=== PATIENT | female | born 1990 | race African-American/Black ===

== ENCOUNTER 2017-11-20 09:27 | Emergency (ER) | payer SELFPAY ==
[~2017-11-20] VITALS: Ht 167.6 cm; Wt 54.0 kg
[2017-11-20] MEDS ORDERED: LORAZEPAM 2MG/ML CPJ IM STA (09:40)
[2017-11-20] MEDS ORDERED: OLANZAPINE 10 MG/VIAL IM STA (09:40)
[2017-11-20 10:11] LABS: BASOPHILS % 0.1 % (0.0-2.0); EOSINOPHILS % 0.4 % (0.0-5.0); HEMATOCRIT. 38.9 % (36.0-48.0); LYMPHOCYTES % 9.2 % (20.0-50.0); MEAN CORPUSCULAR HEMOGLOBIN 31.2 pg (28.0-32.0); MEAN CORPUSCULAR VOLUME 93.7 fL (81.0-99.0); MEAN PLATELET VOLUME 9.6 fl (7.4-10.4); NEUTROPHILS % 87.3 % (40.0-76.0); PLATELET 281 x1000/uL (130-400); RED BLOOD CELL COUNT 4.15 mill/uL (4.2-5.4); RED CELL DISTRIBUTION WIDTH 13.6 % (11.6-14.6)
[2017-11-20 10:19] LABS: CHLORIDE 109 mEq/L (98-107)
[2017-11-20 10:22] LABS: ETHANOL BLOOD < 10 mg/dL
[2017-11-20 10:27] LABS: AMMONIA < 25 uMol/L (<32)
[2017-11-20 10:28] LABS: TROPONIN I < 0.02 ng/mL (0.00-0.04)
[2017-11-20] MEDS ORDERED: ONDANSETRON HCL 4MG/2ML VIAL IM ONE (15:45)
[2017-11-20 17:19] VITALS: BP 131/68
== END 2017-11-20 18:07 | disposition home or self-care (01) ==
LOC: ER 09:34
DX: F41.0 Panic disorder [episodic paroxysmal anxiety] (principal); Z88.5 Allergy status to narcotic agent
CPT/HCPCS: 36415; 80053; 80307; 80329; 82140; 84443; 84484; 85025; 93005; 96372; 99285; G0482; J2060; J2405; J3490

== ENCOUNTER 2019-06-01 07:51 | Emergency (ER) | payer MEDICAID ==
[~2019-06-01] VITALS: Ht 165.1 cm; Wt 56.0 kg
[2019-06-01] MEDS ORDERED: SODIUM CHLORIDE 0.9% 1,000 ML IV ONE ×2 (08:47→11:24)
[2019-06-01] MEDS ORDERED: ONDANSETRON HCL 4MG/2ML INJ IV STA (08:47)
[2019-06-01] MEDS ORDERED: LORAZEPAM 2MG/ML CPJ IV ONE (09:00)
[2019-06-01 09:05] LABS: CLARITY URINE CLEAR (CLEAR); COLOR URINE YELLOW (YELLOW); KETONES URINE 1+ (NEGATIVE); LEUKOCYTE ESTERASE URINE NEGATIVE (NEGATIVE); NITRITE URINE NEGATIVE (NEGATIVE); OCCULT BLOOD URINE NEGATIVE (NEGATIVE); PROTEIN URINE TRACE (NEGATIVE); SPECIFIC GRAVITY URINE 1.024 (1.005-1.030)
[2019-06-01 09:17] LABS: *AMPHETAMINES SCREEN URINE NEGATIVE (NEGATIVE); *BENZODIAZEPINES SCREEN URINE NEGATIVE (NEGATIVE); *COCAINE SCREEN URINE NEGATIVE (NEGATIVE); METHADONE URINE SCREEN NEGATIVE (NEGATIVE); OPIATES URINE SCREEN NEGATIVE (NEGATIVE)
[2019-06-01 09:18] LABS: *BARBITURATES SCREEN URINE NEGATIVE (NEGATIVE); PHENCYCLIDINE URINE SCREEN NEGATIVE (NEGATIVE)
[2019-06-01 09:26] LABS: BASOPHILS % 0.9 % (0.0-2.0); HEMATOCRIT. 35.9 % (36.0-48.0); HEMOGLOBIN. 12.2 g/dL (12.0-16.0); LYMPHOCYTES % 8.8 % (20.0-50.0); MEAN CORPUSCULAR HEMOGLOBIN 31.5 pg (28.0-32.0); MEAN CORPUSCULAR VOLUME 92.7 fL (81.0-99.0); MEAN PLATELET VOLUME 9.4 fl (7.4-10.4); MONOCYTES % 3.3 % (2.0-8.0); PLATELET 327 x1000/uL (130-400); RED BLOOD CELL COUNT 3.87 mill/uL (4.2-5.4); RED CELL DISTRIBUTION WIDTH 13.7 % (11.6-14.6)
[2019-06-01 09:29] LABS: CHLORIDE 106 mEq/L (98-107)
[2019-06-01 09:30] LABS: CANNABINOID URINE SCREEN PRESUMTIVE POSITIVE (NEGATIVE)
[2019-06-01 09:34] LABS: ETHANOL BLOOD < 10 mg/dL
[2019-06-01] MEDS ORDERED: METOCLOPRAMIDE HCL 10MG/2ML VIAL IV STA (11:24)
[2019-06-01] MEDS ORDERED: METOCLOPRAMIDE HCL 10MG/2ML VIAL ONE ×2 (12:41→14:38)
[2019-06-01] MEDS ORDERED: SODIUM CHLORIDE 0.9% 1,000 ML IV SCH (14:23)
[2019-06-01] MEDS ORDERED: DEXT 5%/0.45% NACL 1000ML 1,000 ML IV ONE (14:23)
[2019-06-01] MEDS ORDERED: METOCLOPRAMIDE HCL 10MG/2ML VIAL IV ONE (14:23)
[2019-06-01] MEDS ORDERED: HALOPERIDOL LACTATE 5MG/ML VIAL IM STA (15:40)
[2019-06-01] MEDS ORDERED: HALOPERIDOL LACTATE 5MG/ML VIAL IM ONE (15:45)
[2019-06-01 18:18] VITALS: BP 115/83
== END 2019-06-01 18:27 | disposition home or self-care (01) ==
LOC: ER 07:51
DX: F12.988 Cannabis use, unspecified with other cannabis-induced disorder (principal); R11.10 Vomiting, unspecified; F41.9 Anxiety disorder, unspecified; Z88.6 Allergy status to analgesic agent
CPT/HCPCS: 36415; 80053; 80305; 80320; 81003; 81025; 82962; 83690; 85025; 96361; 96374; 96375; 99284; J1630; J2060; J2405; J2765; J7030; Z7610; A4565; G0480